=== PATIENT | female | born 2000 | race Caucasian/White ===

== ENCOUNTER 2024-09-16 10:13 | Outpatient (CLI) | payer OTHER, SELFPAY ==
[2024-09-16 10:25] VITALS: BMI 32.1
--- NOTE | 2024-09-16 10:34 | US_ITS ---
PROCEDURE: BIOPHYSICAL PROF W/O NON STRESS 09/16/2024 REASON FOR EXAM: TWINS- BABY A NONREACTIVE TECHNIQUE: Obstetric ultrasound performed with static and cine graphic images obtained COMPARISON: None. FINDINGS: Baby a presentation: Cephalic heart rate: 157 beats per minute. Amniotic fluid within normal limits 9 largest vertical pocket: 7.1 cm. Placenta location is anterior and not low-lying. Placenta grade is 1. Breathing movements: 2 Gross body movements: 2 Size tone: 2 Amniotic Fluid volume 2:. US/Biophysical Prof W/O Non Stres IMPRESSION: Biophysical profile score is 8/8 Reading [facility]
[2024-09-16 10:47] VITALS: BP 113/68; PULSE 76; RESP 18; TEMP 36.4
[2024-09-16 10:48] VITALS: PULSE 86; O2SAT 97
--- NOTE | 2024-09-16 19:26 | OB.TRI.NOTE ---
HPI - General General Date of Admission: 09/16/24 Date of Service: 09/16/24 Chief Complaint: Twins Non reactive baby A HPI Narrative WESTON KNIGHT, is a 23 F who presents from the office with non reactive NST for Baby with variables. Baby B was reactive BPP x 2 8/8 Reactive tracing on WP for both babies Maternal Data Information Final MARGO: 10/06/24 Gestational age: 36+1 PFSH PFSH Home Medications ?Medication ?Instructions ?Recorded ?Last Taken ?Type ferrous sulfate 325 mg (65 mg 325 mg PO QODAY 09/16/24 09/15/24 21:00 History iron) tablet (Feosol) 325 mg folic acid 1 mg tablet 1 mg PO DAILY 09/16/24 09/16/24 08:00 History 1 mg vits no.130-ferrous fum 1 tab PO DAILY 09/16/24 09/15/24 21:00 History 27 mg iron-folic acid 800 mcg 1 TAB tablet ( Vitamin) Allergy/AdvReac Type Severity Reaction Status Date / Time aspirin AdvReac Severe Bleeding Verified 09/16/24 11:02 ibuprofen AdvReac Severe Bleeding Verified 09/16/24 11:02 History 2 Elective abortions Hx Para 1 Spontaneous abortions Hx # Term Pregnancies Ectopic pregnancies Hx # Pregnancies Multiple births # of living children 0 Assessment & Plan (1) Dichorionic diamniotic twin : QUALIFIERS: Trimester: third trimester Qualified Code(s): O30.043 - Twin , dichorionic/diamniotic, third trimester (2) 36 weeks gestation of : (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
== END 2024-09-16 12:13 | disposition home or self-care (01) ==
LOC: WPOUT 10:22 → WP 10:23
PROVIDERS: Referring Provider Obstetrics & Gynecology; Visit Provider Obstetrics & Gynecology
DX: O30.043 Twin pregnancy, dichorionic/diamniotic, third trimester (principal); Z3A.36 36 weeks gestation of pregnancy; Z14.01 Asymptomatic hemophilia A carrier
CPT/HCPCS: 59025; 59050; 76819; 99221; G0378